=== PATIENT | male | born 1955 | race Caucasian/White ===

== ENCOUNTER 2017-02-06 00:10 | Emergency (ER) | payer BC, OTHER ==
[~2017-02-06] VITALS: Ht 175.3 cm; Wt 79.2 kg
[~2017-02-06 00:10] MED LIST: ERYT1O RIGHT EYE; METH750T2 PO; PROSTATE MED; TAMS0.4C67 PO
[2017-02-06 00:21] VITALS: BP 137/72; PULSE 64; RESP 16; TEMP 98.2; O2SAT 96
[2017-02-06] MEDS ORDERED: TEGR200T PO (00:38)
[2017-02-06] MEDS ORDERED: ZIPR20 PO (00:38)
[2017-02-06] MEDS ORDERED: TAMS5CAP PO (00:56)
[2017-02-06] MEDS ORDERED: LIDOCAINE 1%/EPINEPHrine 1:100,000 SOLN 20 ML VIAL INFIL ONE (02:00)
[2017-02-06] MEDS ORDERED: TETANUS/DIPHTHERIA TOXOID ADULT 0.5 ML VIAL IM ONE (02:00)
--- NOTE | 2017-02-06 02:21 | PD ---
HPI Chief Complaint: Laceration/Skin Injury Time Seen by Provider: 01:49 Travel History International Travel<30 days: No Contact w/Intl Traveler<30days: No Traveled to known affect area: No History of Present Illness HPI The patient is a 61-year-old male that lacerated the proximal portion of his left ankle, he states with glass. This happened at 11 PM tonight. He cleaned the wound out. His last and a shot was over 10 years ago. [facility] Past Medical History Medical other: Yes (ENLARGED PROSTATE) Tetanus Vaccination: Unknown ?: Not Past Surgical History Other Surgery: Yes (HERNIA X2) Social History Alcohol Use: Yes (SOCIAL) Tobacco Use: Yes Substance Use: No Allergies-Medications (Allergen,Severity, Reaction): Coded Allergies: penicillin G (Unverified Allergy, Unknown, 02/06/17) Reported Meds & Prescriptions Reported Meds & Active Scripts Active Reported Flomax (Tamsulosin HCl) 0.4 Mg Cap 0.4 Mg PO HS Review of Systems Except as stated in HPI: all other systems reviewed are Neg Physical Exam Narrative GENERAL: Well-nourished, well-developed patient in minimal apparent distress with his left ankle laceration. SKIN: Focused skin assessment warm/dry. There is a 2 cm laceration on the proximal left ankle. It is not involve tendons, nerves or major vessels. HEAD: Normocephalic. EYES: No scleral icterus. No injection or drainage. NECK: Supple, trachea midline. No JVD or lymphadenopathy. CARDIOVASCULAR: Regular rate and rhythm without murmurs, gallops, or rubs. RESPIRATORY: Breath sounds equal bilaterally. No accessory muscle use. GASTROINTESTINAL: Abdomen soft, non-tender, nondistended. MUSCULOSKELETAL: No cyanosis, or edema. BACK: Nontender without obvious deformity. No CVA tenderness. Data Data Last Documented VS Vital Signs Date Time Temp Pulse Resp B/P Pulse Ox O2 Delivery O2 Flow Rate FiO2 02/06/17 00:21 98.2 64 16 137/72 96 Orders Wound Care (02/06/17 01:49) Lidocai-Epi 1%-1:100,000 Inj (Xylocaine- (02/06/17 02:00) Tetanus/Diphtheria Tox Adult (Tetanus/Di (02/06/17 02:00) MDM Medical Decision Making Medical Screen Exam Complete: Yes Emergency Medical Condition: Yes Medical Record Reviewed: Yes Differential Diagnosis Laceration needing repair, laceration not needing repair, laceration involving tendons, nerves are large vessels. Narrative Course The patient has a laceration that needs suturing but it does not involve tendons , nerves or large vessels. Procedures Procedure Narrative The wound was numbed with 1% lidocaine and copiously irrigated, under sterile technique the wound was reirrigated and sutured with 7 stitches of 4-0 nylon. No foreign bodies were noted in the wound. The patient tolerated procedure well. The laceration was 3 cm long. Diagnosis Primary Impression: Laceration of ankle Additional Instructions: As we discussed, keep the laceration clean and dry and return in 12-14 days for suture removal. If you have any problems return immediately. Change bandage daily after leaving this bandage on for 2-3 days. Always keep the line of antibiotic ointment over the laceration. Med/Other Pt SpecificInfo: No Change to Meds Disposition: 01 DISCHARGE HOME Condition: Stable Wilfrid Harden MD Feb 06, 2017 02:21
[2017-02-06 02:36] VITALS: BP 162/77
== END 2017-02-06 02:37 | disposition home or self-care (01) ==
LOC: PHED 00:10
DX: S91.012A Laceration without foreign body, left ankle, initial encounter (principal); W25.XXXA Contact with sharp glass, initial encounter; Z23 Encounter for immunization
CPT/HCPCS: 12002; 90471; 90714